=== PATIENT | female | born 1960 | race Caucasian/White ===

== ENCOUNTER → 2016-05-28 | Outpatient (CLI) | payer OTHER ==
[~2016-05-28] MED LIST: ASPIRIN81 M1 PO; BUSPIRONE PO; NORVASC2.5 MG PO; OXYCODONE5 MG PO; PROMETHAZINE HC25 M1 PO; PROTONIX40 MG PO; SIMVASTATIN; ZESTRIL,PRINIVI10 MG PO; ZOFRAN4 MG PO
== END | disposition home or self-care (01) ==
LOC: NUC 07:33
DX: R10.13 Epigastric pain (principal); K22.70 Barrett's esophagus without dysplasia; R07.89 Other chest pain; K30 Functional dyspepsia; K31.7 Polyp of stomach and duodenum; Z86.010 Personal history of colon polyps; Z83.71 Family history of colonic polyps; K90.89 Other intestinal malabsorption; K76.0 Fatty (change of) liver, not elsewhere classified
CPT/HCPCS: 78227; A9537; J2805

== ENCOUNTER 2017-09-26 11:39 | Emergency (ER) | payer OTHER ==
[~2017-09-26] VITALS: Ht 165.1 cm; Wt 94.1 kg
[2017-09-26 12:33] LABS: HEMATOCRIT 33.5 % (36.0-46.0); MCH 26.1 PG (29.0-34.0); MCHC 32.8 G/DL (30.0-36.0); MCV 79.6 FL (83-99); PLATELET COUNT 212 K/uL (156-360); RBC DIS.WIDTH-CV 13.2 % (11.8-14.6); RBC DIS.WIDTH-SD 37.5 % (39-53); RED BLOOD COUNT 4.21 M/uL (3.80-5.20); WHITE BLOOD COUNT 5.8 K/uL (4.1-10.2)
[2017-09-26 12:40] LABS: ALBUMIN 4.1 g/dL (3.2-4.8); CHLORIDE 102 mEq/L (99-109); SODIUM 139 mEq/L (136-147)
[2017-09-26 12:43] LABS: GLUCOSE 80 mg/dL (70-99); TOTAL PROTEIN 6.9 g/dL (6.4-8.3)
[2017-09-26 12:44] LABS: TOTAL BILIRUBIN 0.3 mg/dL (0.0-1.0)
[2017-09-26 12:46] LABS: ALKALINE PHOSPHATASE 90 IU/L (3-129); CREATININE 0.7 mg/dL (0.6-1.3); GFR ESTIMATE (CALCULATED) > 59 mL/min/
[2017-09-26 12:47] LABS: UREA NITROGEN (BUN) 16 mg/dL (9-23)
[2017-09-26 12:48] LABS: AST (GOT) 17 IU/L (2-34)
[2017-09-26 12:49] LABS: ALT (GPT) 14 IU/L (3-49)
[2017-09-26 13:23] LABS: C-REACTIVE PROTEIN 13.2 MG/L (0-10)
[2017-09-26 13:45] LABS: ERTH.SED.RATE 26 MM/HR (0-30)
[2017-09-26] MEDS ORDERED: MOTRIN800 MG PO (15:46)
[2017-09-26] MEDS ORDERED: BACTRIM,SEPT1 TABLET PO (15:46)
[2017-09-26] MEDS ORDERED: FLEXERIL10 MG PO (15:46)
[2017-09-26 16:46] VITALS: BP 160/88
== END 2017-09-26 16:48 | disposition home or self-care (01) ==
LOC: EME 11:39
PROVIDERS: Nurse Practitioner Family
DX: L03.113 Cellulitis of right upper limb (principal); M54.12 Radiculopathy, cervical region; R22.31 Localized swelling, mass and lump, right upper limb; J45.909 Unspecified asthma, uncomplicated; I10 Essential (primary) hypertension; F41.9 Anxiety disorder, unspecified; K21.9 Gastro-esophageal reflux disease without esophagitis; Z79.82 Long term (current) use of aspirin; Z88.5 Allergy status to narcotic agent; Z88.0 Allergy status to penicillin
CPT/HCPCS: 80053; 85027; 85651; 86140; 93971; 99281; 99284